=== PATIENT | female | born 1965 | race Caucasian/White ===

== ENCOUNTER → 2018-02-13 | Outpatient (CLI) | payer BC ==
[~2018-02-13] MED LIST: PROAIR HFA8.5 GM IH
== END | disposition home or self-care (01) ==
LOC: CDC 14:47
DX: Z01.810 Encounter for preprocedural cardiovascular examination (principal); K42.9 Umbilical hernia without obstruction or gangrene; I45.4 Nonspecific intraventricular block
CPT/HCPCS: 93000

== ENCOUNTER 2018-03-02 07:31 | Day surgery (SDC) | payer BC ==
[~2018-03-02] VITALS: Ht 160 cm; Wt 122.5 kg
[~2018-03-02 07:31] MED LIST changes: +OMEPRAZOLE40 M1 PO; +TROKENDI XR100 MG PO
[2018-03-02 07:57] VITALS: BP 110/58
[2018-03-02] MEDS ORDERED: NORCO 5/3251 TABLET PO (10:21)
[2018-03-02 12:08] VITALS: BP 123/68
[2018-03-02 13:05] VITALS: BP 121/56
[2018-03-02 13:53] VITALS: BP 109/56
== END 2018-03-02 14:30 | disposition home or self-care (01) ==
LOC: SDC 07:31
PROC: 0WUF4JZ Supplement Abdominal Wall with Synthetic Substitute, Percutaneous Endoscopic Approach (ICD-10-PCS; principal; 2018-03-02)
DX: K43.0 Incisional hernia with obstruction, without gangrene (principal); K66.0 Peritoneal adhesions (postprocedural) (postinfection); J45.909 Unspecified asthma, uncomplicated; E66.01 Morbid (severe) obesity due to excess calories; Z68.42 Body mass index [BMI] 45.0-49.9, adult; Z86.718 Personal history of other venous thrombosis and embolism; I10 Essential (primary) hypertension; Z90.710 Acquired absence of both cervix and uterus; Z90.49 Acquired absence of other specified parts of digestive tract; Z80.1 Family history of malignant neoplasm of trachea, bronchus and lung; Z82.49 Family history of ischemic heart disease and other diseases of the circulatory system; Z80.3 Family history of malignant neoplasm of breast; Z80.0 Family history of malignant neoplasm of digestive organs; Z87.891 Personal history of nicotine dependence
CPT/HCPCS: C1781; J0690; J1170; J2250; J3010; Q0175